=== PATIENT | male | born 1945 | race Caucasian/White ===

== ENCOUNTER 2016-07-09 11:59 | Emergency (ER) | payer MEDICARE ==
[2016-07-09 12:12] VITALS: TEMP 98.7; BMI 25.8
[2016-07-09 12:28] LABS: AUTOMATED BASOPHIL 0.1 % (0-2); AUTOMATED EOSINOPHIL 1.2 % (0-5); AUTOMATED LYMPH 8.3 % (17-44); AUTOMATED MONOCYTE 5.3 % (3-10); AUTOMATED NEUTROPHIL 85.1 % (45-76); MPV 7.3 fL (7.4-10.4)
[2016-07-09 12:35] LABS: ALLEN'S TEST PASS; BEb 1.3 (+/- 2); TCO2 26.1 MMOL/L (23-27)
[2016-07-09 12:36] LABS: ABG Draw Site RBA
[2016-07-09 12:40] LABS: PARTIAL THROMB. TIME 30.8 SEC (22-35); PT-INR 1.1
[2016-07-09 12:44] LABS: BLOOD UREA NITROGEN 22 MG/DL (9-20); CALCIUM 8.5 MG/DL (8.4-10.2); CALCULATED OSMOLALITY 276 MOs/Kg (270-290); CHLORIDE 98 mEq/L (98-107); GLUCOSE 223 MG/DL (70-99); SODIUM LEVEL 138 mEq/L (137-146); TOTAL PROTEIN 6.4 G/DL (6.3-8.2)
--- NOTE | 2016-07-09 13:23 | DIRPT ---
CLINICAL DATA: Cough, congestion, shortness of breath for 5 days. Rib pain. EXAM: CHEST 2 VIEW COMPARISON: 11/15/2015 FINDINGS: Prior median sternotomy. Heart is borderline in size. No confluent airspace opacities, effusions or edema. No acute bony abnormality or pneumothorax. IMPRESSION: No active cardiopulmonary disease. Electronically Signed By: Navarro Pearson M.D. On: 07/09/2016 13:20
--- NOTE | 2016-07-09 14:03 | EDPRACDOC ---
- General Information Chief Complaint: Dyspnea/Resp distress Stated Complaint: PNA? - SENT FROM [facility] - HEART TRANSPLANT PATIENT Time Seen by Provider: 07/09/16 12:34 Information Source: Patient Home Medications: Home Medications Albuterol Sulfate 2.5 mg NEB Q6H 07/09/16 Albuterol Sulfate [Proair Hfa] 2 puff INH Q6H PRN 07/09/16 Albuterol Sulfate [Ventolin] 2.5 mg NEB Q6H #30 nebu 07/09/16 Albuterol/Ipratropium Neb [Duoneb] 3 ml NEB Q6H PRN #1 box 07/09/16 Aspirin [Ecotrin] 81 mg PO DAILY 07/09/16 Azithromycin [Zithromax] 250 mg PO .SEE COMMENTS 07/09/16 Ca/D3/Mag Ox/Zinc/Critical Care Educator/Armin/Bor [Calcium +D & Minerals Chew Tab] 1 tab PO BID 09/20 Cefdinir 300 mg PO BID #20 capsule 07/09/16 Cyclobenzaprine HCl [Flexeril] 10 mg PO TID 07/09/16 Furosemide [Lasix] 20 mg PO DAILY PRN 07/09/16 Gabapentin [Neurontin] 900 mg PO TID 07/09/16 Glipizide 10 mg PO DAILY 07/09/16 Insulin Detemir [Levemir Flextouch] 40 unit SQ QHS 07/09/16 Isosorbide Mononitrate [Isosorbide Mononitrate ER] 30 mg PO DAILY 07/09/16 Lisinopril [Zestril] 40 mg PO QHS 07/09/16 Lorazepam [Ativan] 2 mg PO TID 07/09/16 Montelukast Sodium [Singulair] 10 mg PO DAILY 07/09/16 Multivitamin [One Daily] 1 tab PO DAILY 07/09/16 Mycophenolate Mofetil [Cellcept] 500 mg PO BID 07/09/16 Nystatin 1 tsp PO DIR 07/09/16 Coldiron-3 Fatty Acids/Fish Oil [Fish Oil 1,000 mg Softgel] 1 cap PO BID 07/09/16 Oxycodone HCl [Oxycodone Immediate Release] 10 mg PO Q6H PRN 07/09/16 Pantoprazole Sodium [Protonix] 40 mg PO DAILY 07/09/16 Pravastatin Sodium [Pravachol] 20 mg PO HS 07/09/16 Prednisone [Deltasone, Orasone] 20 mg PO DAILY #12 tab 07/09/16 Tacrolimus 1 mg PO QAM 07/09/16 Tacrolimus [Prograf] 2 mg PO QHS 07/09/16 Allergies/Adverse Reactions: Allergies Allergy/AdvReac Type Severity Reaction Status Date / Time Penicillins Allergy Hives* Verified 07/09/16 12:08 - History of Present Illness HPI: COUGH COLD CONGESTION FEVER 101.5 AT HOME. HAS SEEN PCP HAS BEEN PLACED ON ZITHROMAX DAY 4. SYMPTOMS HAVE PERSISTED. THE ENTIRE NECK IS EXTENDED FAMILY HAS HAD RSV AND ANOTHER VIRAL SYNDROME CAUSING RESPIRATORY SYMPTOMS. PATIENT STATUS POST CARDIAC TRANSPLANT, 2009, NO ISSUES WITH REJECTION. ED Past Medical History - Patient Medical History Cardiac History: Reports: Hypertension, Congestive Heart Failure, Heart Attack, Other (CARDIAC TRANSPLANT) Respiratory History: Comment Only: Asthma (bronchitis) GI/ History: Reports: Gastroesophageal Reflux Psychological History: Reports: Depression Systemic History: Reports: Cancer (skin left ear), Diabetes - Social Medical History Smoking Status: Former smoker ETOH: None Substance Abuse: None Lives With: Family Lives In: Home EDM Review of Systems - Review of Systems ROS Negative Except as Marked: Yes All systems reviewed and were negative except as marked - Physical Exam Constitutional: Alert (Awake), No apparent distress Oriented to: Time, Person, Place Last recorded Vital Signs: Last Vital Signs Temp 98.7 F 07/09/16 12:12 Pulse 101 07/09/16 13:33 Resp 18 07/09/16 13:33 BP 141/90 07/09/16 13:33 Pulse Ox 92 07/09/16 13:33 Oxygen Pulse Oxygen Saturation 92 O2 Device Nasal Cannula Oxygen Flow Rate 3 Fraction of Inspired Oxygen ( 85 FIO2) - HEENT Head: Normal ( normocephalic) Eye Exam: Normal (PERRL, EOMI, Sclera white) Oropharynx: Normal (Pharynx:Moist without exudate,Gums-no swelling) Tympanic Membrane: Normal ENT EAC: Normal TMJ: Normal Nose: No Symptoms Reported (septum midline) Neck: Normal (FROM, trachea at midline) - Respiratory/Cardiovascular Respiratory: Normal - CTA (BBS clear to auscultation without adventitious sounds ) Cardiovascular: Normal (RRR without murmur, gallop or rub) - GI Auscultation: Normal (NABS) Palpation: Normal (Soft,No rebound or guarding, non distended) Tenderness: Non tender Montaño's Sign: Negative - Musculoskeletal Back: Normal (Non-Tender) Extremities: Normal (Normal tone, Pulses 2+ No cyanosis or edema, FROM) - Integumentary Skin: Normal, Warm, Dry Lymphatics: Normal (no adenopathy) - Neurologic Memory Impaired: Normal Motor Function: Normal (Normal tone, Pulses 2+ No cyanosis or edema, FROM) Cranial Nerve: Normal (CN II-X11 intact sensation, strength 5/5) Cerebellar: Normal Mood Description: Normal Perception: Normal ED SOB MDM - Re-evaluation Re-evaluation 2 Re-evaluation Time: 16:43 Re-evaluation: PT COMFORTABLE, SO2 88-92% ON RA AFTER NEBS. LONG DISCUSSION WITH PATIENT AND SIGNIFICANT OTHER REGARDING RISKS BENEFITS AND ALTERNATIVE INPATIENT VERSUS OUTPATIENT CARE WAS DISCUSSED. AT THIS TIME. THEY ELECTED FOR OUTPATIENT TREATMENT WILL ATTEMPT TO ARRANGE SUPPLEMENTAL OXYGEN AT HOME ADVISED THEM TO OBTAIN PULSE OX TO MONITOR OXYGENATION AT HOME. PATIENT AND SIGNIFICANT OTHER VERY RELIABLE AND CAN BE TRUSTED TO SEEK MEDICAL CARE WHEN NEEDED. - Results Result Diagrams: 07/09/16 12:15 07/09/16 12:15 Results: WBC 5.9 xk/uL (3.8-10.8) 07/09/16 12:15 RBC 4.80 xM/uL (4.70-6.10) 07/09/16 12:15 Hgb 12.0 g/dL (14.0-18.0) L 07/09/16 12:15 Hct 37.8 % (42-52) L 07/09/16 12:15 MCV 79 fL (80-94) L 07/09/16 12:15 MCH 24.9 pg (27-32) L 07/09/16 12:15 MCHC 31.6 g/dl (33-36) L 07/09/16 12:15 RDW 17.1 % (11.5-14.5) H 07/09/16 12:15 Plt Count 265 xk/uL (130-400) 07/09/16 12:15 MPV 7.3 fL (7.4-10.4) L 07/09/16 12:15 Neut % (Auto) 85.1 % (45-76) H 07/09/16 12:15 Lymph % (Auto) 8.3 % (17-44) L 07/09/16 12:15 Gray % (Auto) 5.3 % (3-10) 07/09/16 12:15 Eos % (Auto) 1.2 % (0-5) 07/09/16 12:15 Baso % (Auto) 0.1 % (0-2) 07/09/16 12:15 Absolute Neuts (auto) 5.02 xk/uL (1.7-8.2) 07/09/16 12:15 Absolute Lymphs (auto) 0.47 xk/uL (0.65-4.75) L 07/09/16 12:15 PT 10.9 SEC (9.2-11.2) 07/09/16 12:15 INR 1.1 07/09/16 12:15 APTT 30.8 SEC (22-35) 07/09/16 12:15 Puncture Site Rba 07/09/16 12:32 pH 7.450 pH UNITS (7.35-7.45) 07/09/16 12:32 pCO2 36.0 mmHg (35-45) 07/09/16 12:32 pO2 53.0 mmHg (80-100) L 07/09/16 12:32 HCO3 25.0 MMOL/L (22-26) 07/09/16 12:32 Total CO2 26.1 MMOL/L (23-27) 07/09/16 12:32 Base Excess 1.3 (+/- 2) 07/09/16 12:32 FiO2 % 21 07/09/16 12:32 Specimen Drawn By Dared 07/09/16 12:32 Sodium 138 mEq/L (137-146) 07/09/16 12:15 Potassium 4.3 mEq/L (3.5-5.1) 07/09/16 12:15 Chloride 98 mEq/L (98-107) 07/09/16 12:15 Carbon Dioxide 27 mMOL/L (22-33) 07/09/16 12:15 Anion Gap 17 mEq/L (8-16) H 07/09/16 12:15 BUN 22 MG/DL (9-20) H 07/09/16 12:15 Creatinine 1.50 MG/DL (0.66-1.25) H 07/09/16 12:15 Estimated GFR (MDRD) 46 mL/min (>=60) L 07/09/16 12:15 Glucose 223 MG/DL (70-99) H 07/09/16 12:15 Calculated Osmolality 276 MOs/Kg (270-290) 07/09/16 12:15 Lactic Acid 1.3 mEq/L (0.7-2.1) 07/09/16 12:15 Calcium 8.5 MG/DL (8.4-10.2) 07/09/16 12:15 Corrected Calcium 9.0 MG/DL (8.4-10.2) 07/09/16 12:15 Total Bilirubin 0.3 MG/DL (0.2-1.3) 07/09/16 12:15 AST 30 IU/L (17-59) 07/09/16 12:15 ALT 30 IU/L (21-72) 07/09/16 12:15 Alkaline Phosphatase 80 IU/L (50-160) 07/09/16 12:15 Troponin I < 0.01 ng/mL (<.04) 07/09/16 12:15 Xcj-[id number]-Pjmuksufaeg Pept 449 pg/mL (0-900) 07/09/16 12:15 Total Protein 6.4 G/DL (6.3-8.2) 07/09/16 12:15 Albumin 3.5 G/DL (3.5-5.0) 07/09/16 12:15 Microbiology 07/09/16 12:23 Influenza Type A Antigen Screen - Final Nasal Washing/Aspirate Or Swab NEGATIVE Please note: A NEGATIVE result does not exclude an influenza virus infection. It is a presumptive result and, if required, confirmation should be done using either a virus culture or an FDA-cleared influenza A&B molecular assay. ("NORMAL" value = "NEGATIVE".) Influenza Type B Antigen Screen - Final NEGATIVE Please note: A NEGATIVE result does not exclude an influenza virus infection. It is a presumptive result and, if required, confirmation should be done using either a virus culture or an FDA-cleared influenza A&B molecular assay. ("NORMAL" value = "NEGATIVE".) Lab Results 07/09/16 07/09/16 07/09/16 12:32 12:15 12:15 WBC RBC Hgb Hct MCV MCH MCHC RDW Plt Count MPV Neut % (Auto) Lymph % (Auto) Gray % (Auto) Eos % (Auto) Baso % (Auto) Absolute Neuts (auto) Absolute Lymphs (auto) PT 10.9 INR 1.1 APTT 30.8 Puncture Site Rba pH 7.450 pCO2 36.0 pO2 53.0 L HCO3 25.0 Total CO2 26.1 Base Excess 1.3 FiO2 % 21 Specimen Drawn By Dared Sodium Potassium Chloride Carbon Dioxide Anion Gap BUN Creatinine Estimated GFR (MDRD) Glucose Calculated Osmolality Lactic Acid Calcium Corrected Calcium Total Bilirubin AST ALT Alkaline Phosphatase Troponin I < 0.01 [id number]-[id number]-Osepqbyxbel Pept 449 Total Protein Albumin 07/09/16 07/09/16 07/09/16 12:15 12:15 12:15 WBC 5.9 RBC 4.80 Hgb 12.0 L Hct 37.8 L MCV 79 L MCH 24.9 L MCHC 31.6 L RDW 17.1 H Plt Count 265 MPV 7.3 L Neut % (Auto) 85.1 H Lymph % (Auto) 8.3 L Gray % (Auto) 5.3 Eos % (Auto) 1.2 Baso % (Auto) 0.1 Absolute Neuts (auto) 5.02 Absolute Lymphs (auto) 0.47 L PT INR APTT Puncture Site pH pCO2 pO2 HCO3 Total CO2 Base Excess FiO2 % Specimen Drawn By Sodium 138 Potassium 4.3 Chloride 98 Carbon Dioxide 27 Anion Gap 17 H BUN 22 H Creatinine 1.50 H Estimated GFR (MDRD) 46 L Glucose 223 H Calculated Osmolality 276 Lactic Acid 1.3 Calcium 8.5 Corrected Calcium 9.0 Total Bilirubin 0.3 AST 30 ALT 30 Alkaline Phosphatase 80 Troponin I [id number]-Rnvbnsnburw Pept Total Protein 6.4 Albumin 3.5 - EKG EKG #1 EKG Time: 12:20 -: Yes EKG interpreted by me Rate: bpm: 106 [place]: Normal Rhythm: NSR Block: RBBB Hypertrophy: None ST: Lat, Ischemia - Diagnostic Imaging Chest Image interpreted by: Radiologist - Departure Final Diagnosis: Viral syndrome, Acute exacerbation of chronic obstructive airways disease, Hypoxia Instructions: COPD (Chronic Obstructive Pulmonary Disease) (ED), Upper Respiratory Infection (ED) Education/Counseling Given To: Patient Education/Counseling Given Regarding: Diagnosis, Treatment, Prognosis Referrals: Dev Shearer MD [Primary Care Provider] - One Week Prescriptions: Albuterol Sulfate [Ventolin] 2.5 mg NEB Q6H #30 nebu Albuterol/Ipratropium Neb [Duoneb] 3 ml NEB Q6H PRN #1 box PRN Reason: Shortness Of Breath Cefdinir 300 mg PO BID #20 capsule Prednisone [Deltasone, Orasone] 20 mg PO DAILY #12 tab Additional Instructions: RETURN FOR DIFFICULTY BREATHING, CONFUSION, ANY CONCERNS. - Physician Consulted Other Time Called: 14:47 ([employer] [facility] [place]) Provider Called: [employer]ner Returned Call: 14:48 (INCREASE / ADD ABX, WILL FOLLOW IN CLINIC)
[2016-07-09] MEDS ORDERED: ALBUTEROL 0.083% 3 ML NEB NEB ONE (14:50)
[2016-07-09] MEDS ORDERED: Albuterol/Ipratropium Neb 3 ML NEB NEB ONE (14:50)
[2016-07-09] MEDS ORDERED: METHYLPREDNISOLONE 125 MG/2 ML VIAL IV ONE (14:50)
[2016-07-09 17:14] VITALS: BP 148/73; PULSE 98
== END 2016-07-09 17:15 | disposition home or self-care (01) ==
LOC: ED 11:59
DX: J44.1 Chronic obstructive pulmonary disease with (acute) exacerbation (principal); R09.02 Hypoxemia; B34.9 Viral infection, unspecified
CPT/HCPCS: 36415; 36600; 71020; 80053; 82803; 83605; 83880; 84484; 85025; 85610; 85730; 87040; 87804; 93005; 94640; 96374; 99285; A9270; J2930; J7620; J3490